=== PATIENT | male | born 1975 | race Caucasian/White ===

== ENCOUNTER → 2018-11-02 | Outpatient (REF) | payer BC ==
[2018-11-02 12:18] LABS: APPEARANCE, URINE CLEAR (CLEAR); BACTERIA, URINE AUTO NEGATIVE (NEGATIVE); BILIRUBIN, URINE AUTO 1+ (NEGATIVE); BLOOD, URINE BLOOD NEGATIVE (NEGATIVE); COLOR, URINE AMBER (YELLOW); GLUCOSE, URINE (UA) AUTO NEGATIVE (NEGATIVE); KETONE, URINE AUTO TRACE mg/dL (NEGATIVE); LEUKOCYTE ESTERASE, URINE AUTO NEGATIVE (NEGATIVE); MUCUS, URINE LARGE (NEGATIVE); NITRITE, URINE AUTO NEGATIVE (NEGATIVE); PROTEIN, URINE AUTO 1+ mg/dL (NEGATIVE); RBC, URINE AUTO 1 /HPF (0-3); SPECIFIC GRAVITY URINE AUTO 1.027 (1.002-1.035); SQUAMOUS EPITHELIAL CELL UR AU 0 /HPF (0-6); WBC, URINE AUTO 2 /HPF (0-3)
[2018-11-02 12:51] LABS: ALBUMIN 4.2 GM/DL (3.2-5.2); ALT/SGPT 78 U/L (12-78); BLOOD UREA NITROGEN 9 MG/DL (7-18); CALCIUM LEVEL 8.9 MG/DL (8.5-10.1); CARBON DIOXIDE LEVEL 26 MEQ/L (21-32); CHLORIDE LEVEL 105 MEQ/L (98-107); CHOLESTEROL LEVEL 193 MG/DL (<200); CHOLESTEROL RISK RATIO 6.225 (<5); CREATININE FOR GFR 0.86 MG/DL (0.70-1.30); GLOMERULAR FILTRATION RATE > 60.0 (>60); GLUCOSE, FASTING 93 MG/DL (70-100); HDL CHOLESTEROL 31 MG/DL (>40); LDL CHOLESTEROL 116 MG/DL (<100); NON-HDL-C 162 MG/DL; POTASSIUM SERUM 4.8 MEQ/L (3.5-5.1); SODIUM LEVEL 139 MEQ/L (136-145); TOTAL PROTEIN 8.2 GM/DL (6.4-8.2); TRIGLYCERIDES LEVEL 231 MG/DL (<150)
[2018-11-02 13:01] LABS: MALB URINE SIEMENS 43.7 MG/L; MAU/CREAT RATIO 8.9 MCG/MG (0.0-30.0)
[2018-11-02 13:13] LABS: HEMATOCRIT 46.1 % (42.0-52.0); MEAN CORPUSCULAR HEMOGLOBIN 37.2 pg (27.0-33.0); MEAN CORPUSCULAR VOLUME 100.9 fl (80.0-96.0); PLATELET COUNT, AUTOMATED 128 10^3/uL (150-450); RED BLOOD COUNT 4.57 10^6/uL (4.30-6.10); WHITE BLOOD COUNT 7.9 10^3/uL (4.0-10.0)
[2018-11-02 13:14] LABS: MEAN CORPUSCULAR HGB CONC 36.5 g/dl (32.0-36.5)
[2018-11-02 15:56] LABS: BILIRUBIN,DIRECT 1.4 MG/DL (0.0-0.2)
[2018-11-03 10:08] LABS: HEPATITIS B SURFACE ANTIGEN NEGATIVE (NEGATIVE)
[2018-11-03 10:36] LABS: HEPATITIS B CORE ANTIBODY IGM NEGATIVE (NEGATIVE); HEPATITIS C VIRUS ABY INDEX 0.1 INDEX (<0.8)
[2018-11-03 10:38] LABS: HEPATITIS A ANTIBODY IGM NEGATIVE (NEGATIVE)
[2018-11-04 00:06] LABS: TESTOSTERONE FREE (DIRECT) 5.6 pg/mL (6.8-21.5)
== END ==
LOC: M SFHCPLAZ 09:40
PROVIDERS: ATTEND Family Medicine
DX: Z13.1 Encounter for screening for diabetes mellitus (principal); N52.9 Male erectile dysfunction, unspecified; I10 Essential (primary) hypertension; Z13.220 Encounter for screening for lipoid disorders; R82.998 Other abnormal findings in urine

== ENCOUNTER → 2018-11-05 | Outpatient (CLI) | payer BC ==
--- NOTE | 2018-11-05 09:48 | REP ---
Upper quadrant sonography: History: Hyperbilirubinemia. Findings: Scanning through the right upper quadrant of the abdomen demonstrates a normal sized gallbladder without evidence of stone or polyp. Gallbladder wall measures 3.5 mm which is a borderline thickened. Common bile duct is normal measuring 0.4 cm in greatest diameter. There is evidence of diffuse fatty infiltration of the liver. The liver is mildly enlarged with a midclavicular line measurement of 20 cm. No focal liver lesion is seen. No intrahepatic biliary ductal dilation is observed. Limited views of the pancreas show no abnormality. There is no evidence of ascites or right renal abnormality. The right kidney measures 12.8 x 7.6 x 4.9 cm. Impression: Evidence of fatty infiltration of the liver. Mild hepatic enlargement. Gallbladder wall is 3.5 mm which is borderline thickened. Normal bile ducts. Electronically Signed by Dav Solomon MD 11/05/2018 09:40 A
== END ==
LOC: M LRY 07:57
PROVIDERS: ATTEND Family Medicine
DX: E80.6 Other disorders of bilirubin metabolism (principal); R16.0 Hepatomegaly, not elsewhere classified; K76.0 Fatty (change of) liver, not elsewhere classified

== ENCOUNTER → 2018-12-07 | Outpatient (REF) | payer BC ==
[2018-12-07 12:49] LABS: ALBUMIN 4.1 GM/DL (3.2-5.2); ALT/SGPT 46 U/L (12-78); BILIRUBIN,DIRECT 0.7 MG/DL (0.0-0.2); BILIRUBIN,TOTAL 2.1 MG/DL (0.2-1.0); BLOOD UREA NITROGEN 10 MG/DL (7-18); CARBON DIOXIDE LEVEL 23 MEQ/L (21-32); CHLORIDE LEVEL 108 MEQ/L (98-107); CREATININE FOR GFR 1.11 MG/DL (0.70-1.30); FOLATE 9.9 NG/ML; FREE T4 1.04 NG/DL (0.76-1.46); GLOMERULAR FILTRATION RATE > 60.0 (>60); GLUCOSE, FASTING 93 MG/DL (70-100); POTASSIUM SERUM 4.8 MEQ/L (3.5-5.1); SODIUM LEVEL 140 MEQ/L (136-145); TOTAL PROTEIN 7.7 GM/DL (6.4-8.2); VITAMIN B12 LEVEL 345 PG/ML
== END ==
LOC: M SFHCPLAZ 09:59
PROVIDERS: ATTEND Family Medicine
DX: E80.6 Other disorders of bilirubin metabolism (principal); R94.5 Abnormal results of liver function studies; R79.89 Other specified abnormal findings of blood chemistry; D75.89 Other specified diseases of blood and blood-forming organs

== ENCOUNTER → 2019-09-06 | Outpatient (REF) | payer BC | LOC: M LAB REF 18:06 | PROVIDERS: ATTEND Dermatology | DX: D49.2 Neoplasm of unspecified behavior of bone, soft tissue, and skin (principal) ==

== ENCOUNTER 2019-11-28 07:22 | Emergency (ER) | payer BC ==
[~2019-11-28] VITALS: Ht 195.6 cm; Wt 114.2 kg
[2019-11-28] MEDS ORDERED: METO50TA7 (07:30)
[2019-11-28] MEDS ORDERED: ASPI81TA85 PO (07:30)
[2019-11-28] MEDS ORDERED: LISI10TA4 (07:30)
[2019-11-28] MEDS ORDERED: MINO100C4 (07:30)
[2019-11-28] MEDS ORDERED: SOOL1CRE (07:30)
[2019-11-28 08:35] LABS: BASO # 0.1 10^3/uL (0.0-0.2); BASO % 0.5 % (0.0-1.0); EOS # 0.1 10^3/uL (0.0-0.5); EOS % 0.5 % (0.0-3.0); HEMATOCRIT 35.4 % (42.0-52.0); HEMOGLOBIN 13.1 g/dl (13.5-17.5); LYMPH # 1.1 10^3/uL (1.5-5.0); LYMPH % 11.7 % (24.0-44.0); MEAN CORPUSCULAR HEMOGLOBIN 36.6 pg (27.0-33.0); MEAN CORPUSCULAR VOLUME 98.9 fl (80.0-96.0); MONO # 0.9 10^3/uL (0.0-0.8); MONO % 9.5 % (0.0-5.0); NEUTROPHILS % 77.4 % (36.0-66.0); PLATELET COUNT, AUTOMATED 146 10^3/uL (150-450); RED BLOOD COUNT 3.58 10^6/uL (4.30-6.10); WHITE BLOOD COUNT 9.1 10^3/uL (4.0-10.0)
[2019-11-28 08:53] LABS: CALCIUM LEVEL 9.3 MG/DL (8.5-10.1); CREATININE FOR GFR 1.6 MG/DL (0.70-1.30); POTASSIUM SERUM 4.7 MEQ/L (3.5-5.1)
[2019-11-28] MEDS ORDERED: NS 1,000 ML IV ONE (10:30)
[2019-11-28] MEDS ORDERED: LIDOCAINE 2% MDV 20ML VIAL SC ONE (10:45)
[2019-11-28] MEDS ORDERED: BACT800T5 PO (10:50)
[2019-11-28] MEDS ORDERED: BACTRIM 160MG/800MG DS TAB PO ONE (11:00)
[2019-11-28 11:48] VITALS: BP 137/73
--- NOTE | 2019-11-28 12:53 | REP ---
CT ABDOMEN/PELVIS WITHOUT CONTRAST: CT abdomen/pelvis performed without oral or IV contrast. Sagittal and coronal reconstruction images are performed. Visualized lung bases demonstrate no infiltrate. The liver is mildly enlarged measuring 20.5 cm in length. The spleen is mildly enlarged measuring 14.5 cm in length. Adrenal glands are normal. No gross pancreatic or renal abnormality is seen. There is no hydronephrosis. There is no abdominal aortic aneurysm. There are multiple subcentimeter retroperitoneal lymph nodes which are of uncertain significance. There is no free air or free fluid. There is no bowel wall thickening. The appendix is normal. There is a small umbilical hernia containing fat. The gallbladder is grossly unremarkable. I see no pelvic mass. Focal soft tissue density is seen in the right perianal region measuring approximately 3.8 x 1.3 cm. This is compatible with focal inflammation and phlegmon. Tiny internal fluid and abscess cannot be excluded. This is not optimally evaluated due to the lack of IV contrast. IMPRESSION: Focal right perianal soft tissue density most consistent with focal inflammation and phlegmon. Tiny central abscess cannot totally be excluded. Mild hepatosplenomegaly. Multiple subcentimeter retroperitoneal lymph nodes are of uncertain significance. Electronically Signed by Taz Rodriguez MD 11/28/2019 01:15 P
[2019-11-30] MEDS ORDERED: LEVA1TAB2 PO (17:03)
== END 2019-11-28 11:49 | disposition home or self-care (01) ==
LOC: M ED 07:22
DX: K61.1 Rectal abscess (principal); I10 Essential (primary) hypertension; Z79.899 Other long term (current) drug therapy; Z79.82 Long term (current) use of aspirin; Z88.0 Allergy status to penicillin

== ENCOUNTER → 2019-11-30 | Outpatient (REF) | payer BC ==
[~2019-11-30] MED LIST: ASPI81TA85 PO; BACT800T5 PO; LEVA1TAB2 PO; LISI10TA4; METO50TA7; MINO100C4; SOOL1CRE
== END ==
LOC: M LAB REF 14:50
PROVIDERS: ATTEND Surgery
DX: K62.89 Other specified diseases of anus and rectum (principal)